=== PATIENT | male | born 1975 | race Two or more races ===

== ENCOUNTER 2017-07-29 20:23 | Emergency (ER) | payer BC ==
[~2017-07-29] VITALS: Ht 170.2 cm; Wt 70.3 kg
[2017-07-29 20:55] LABS: Basophils # (auto) 0.1 uL; Basophils % (auto) 1.2 % (0.0-2.0); Eosinophils # (auto) 0.2 uL; Eosinophils % (auto) 2.5 % (0.0-7.0); Hematocrit 44.4 % (41.0-53.0); Hemoglobin 14.9 g/dL (13.5-17.5); Lymphocytes # (auto) 2.7 uL; Lymphocytes % (auto) 28.3 % (10.0-50.0); Mean Corpuscular Hemoglobin 28.6 pg (28.0-32.0); Mean Corpuscular Hgb Conc. 33.4 g/dL (32.0-36.0); Mean Corpuscular Volume 85.4 fL (80.0-100.0); Mean Platelet Volume 7.5 fL (6.9-10.8); Monocytes # (auto) 0.7 uL; Neutrophils # (auto) 5.7 uL; Platelet Count (auto) 310 10^3/uL (140-450); Red Cell Distribution Width 14.1 % (11.8-14.3); White Blood Cell 9.4 10^3/uL (4.4-10.8)
[2017-07-29 21:01] LABS: Urine Bilirubin Negative (Negative); Urine Blood TRACE /uL (Negative); Urine Color Yellow (Yellow); Urine Glucose Normal (Normal); Urine Ketone Negative (Negative); Urine Nitrite Negative (Negative); Urine RBC 18 /hpf (0 - 3); Urine Urobilinogen Normal (Negative)
[2017-07-29 21:08] LABS: INR 0.98 (0.9-1.15); Partial Thromboplastin Time 28.2 sec (22.64-33.71); Prothrombin Time 10.7 sec (9.37-12.3)
[2017-07-29 21:19] LABS: Albumin 4.2 g/dL (3.4-5.0); Anion Gap 7 (5-15); Aspartate Aminotransferase 15 U/L (15-37); BUN/Creatinine Ratio 13.2; Blood Urea Nitrogen 12 mg/dL (7-18); Calcium 8.8 mg/dL (8.5-10.1); Carbon Dioxide 29 mmol/L (21-32); Chloride 106 mmol/L (98-107); GFR African American 118 mL/min; GFR Non-African American 97 mL/min; Glucose 96 mg/dL (74-106); Potassium 3.7 mmol/L (3.5-5.1); Salicylate 3.4 mg/dL (2.8-20.0); Sodium 142 mmol/L (136-145)
[2017-07-29 21:20] LABS: Acetaminophen < 2.0 ug/mL (10-30)
[2017-07-29 21:21] LABS: Alkaline Phosphatase 89 U/L (45-117); Total Protein 7.4 g/dL (6.4-8.2)
[2017-07-29 22:36] LABS: Magnesium 2.6 mg/dL (1.6-2.6)
[2017-07-30] MEDS ORDERED: SODIUM CHLORIDE 0.9% 1,000 ML IV ONE ×2 (07:55)
[2017-07-30] MEDS ORDERED: diphenhdrAMINE HCL 50 MG/1 ML VL IV ONE (08:00)
[2017-07-30] MEDS ORDERED: LORazepam 2MG/ML-1ML VIAL IV ONE ×2 (08:00→09:30)
[2017-07-30 10:27] VITALS: BP 145/63
== END 2017-07-30 10:30 | disposition home or self-care (01) ==
LOC: ER 20:28
DX: T50.905A Adverse effect of unspecified drugs, medicaments and biological substances, initial encounter (principal); F11.20 Opioid dependence, uncomplicated; Z59.0 Homelessness; X58.XXXA Exposure to other specified factors, initial encounter; Y93.89 Activity, other specified; Y99.8 Other external cause status; Y92.89 Other specified places as the place of occurrence of the external cause
CPT/HCPCS: 36415; 80053; 80307; 80320; 80329; 81001; 83735; 84484; 85025; 85610; 85730; 96361; 96374; 96375; 96376; 99285; J1200; J2060; J7030

== ENCOUNTER 2017-10-15 20:42 | Emergency (ER) | payer BC ==
[~2017-10-15] VITALS: Ht 170.2 cm; Wt 79.4 kg
[~2017-10-15 20:42] MED LIST: LORazepam 0.5 MG TAB ONE
[2017-10-15 20:49] VITALS: BP 139/68
[2017-10-15] MEDS ORDERED: LORazepam 0.5 MG TAB PO ONE (21:00)
== END 2017-10-16 00:30 | disposition left against medical advice (07) ==
LOC: ER 20:52
DX: T78.40XA Allergy, unspecified, initial encounter (principal)

== ENCOUNTER 2017-10-25 02:50 | Emergency (ER) | payer BC ==
[~2017-10-25] VITALS: Ht 170.2 cm; Wt 77.1 kg
[2017-10-25 04:14] LABS: Basophils # (auto) 0.1 uL; Basophils % (auto) 1.5 % (0.0-2.0); Eosinophils # (auto) 0.3 uL; Eosinophils % (auto) 4.2 % (0.0-7.0); Hematocrit 42.8 % (41.0-53.0); Hemoglobin 14.3 g/dL (13.5-17.5); Lymphocytes # (auto) 2.8 uL; Lymphocytes % (auto) 41.5 % (10.0-50.0); Mean Corpuscular Hemoglobin 28.7 pg (28.0-32.0); Mean Corpuscular Hgb Conc. 33.4 g/dL (32.0-36.0); Mean Corpuscular Volume 86.1 fL (80.0-100.0); Monocytes # (auto) 0.5 uL; Monocytes % (auto) 7.7 % (0.0-12.0); Neutrophils % (auto) 45.1 % (37.0-80.0); Nucleated Red Blood Cells % 0.2 %; Platelet Count (auto) 244 10^3/uL (140-450); Red Blood Cells 4.98 10^6/uL (4.5-5.90); Red Cell Distribution Width 13.5 % (11.8-14.3); White Blood Cell 6.7 10^3/uL (4.4-10.8)
[2017-10-25 04:30] LABS: Albumin 3.8 g/dL (3.4-5.0); BUN/Creatinine Ratio 24.4; Calcium 8.6 mg/dL (8.5-10.1); Potassium 3.8 mmol/L (3.5-5.1)
[2017-10-25 04:36] LABS: Urine WBC None Seen /hpf (0 - 3)
[2017-10-25 04:40] LABS: Bilirubin, Total 0.2 mg/dL (0.2-1.0); Total Protein 6.9 g/dL (6.4-8.2)
[2017-10-25 04:58] LABS: Urine Bacteria NONE SEEN /hpf (None Seen); Urine Blood Negative /uL (Negative); Urine Specific Gravity 1.006 (1.001-1.035)
[2017-10-25 05:38] LABS: Alcohol, Urine < 3.0 mg/dL (0-5); Amphetamine Screen, Urine NEGATIVE (NEGATIVE); Barbiturate Scree,Urine NEGATIVE (NEGATIVE); Benzodiazephine Screen, Urine POSITIVE (NEGATIVE); Cannabinoid Screen, Urine NEGATIVE (NEGATIVE); Cocaine Screen, Urine NEGATIVE (NEGATIVE); Opiate Scree,Urine NEGATIVE (NEGATIVE); Phencyclidine Screen, Urine NEGATIVE (NEGATIVE)
[2017-10-25 05:47] VITALS: BP 131/84
== END 2017-10-25 06:03 | disposition home or self-care (01) ==
LOC: ER 03:02
DX: G47.00 Insomnia, unspecified (principal)
CPT/HCPCS: 36415; 80053; 80307; 81001; 85025

== ENCOUNTER 2022-07-20 01:46 | Emergency (ER) | payer BC ==
[~2022-07-20] VITALS: Ht 170.2 cm; Wt 72.0 kg
[2022-07-20] MEDS ORDERED: KETOROLAC TROMETH 60MG/2ML VIAL IM ONE (02:15)
[2022-07-20 04:25] VITALS: BP 140/82
== END 2022-07-20 06:39 | disposition home or self-care (01) ==
LOC: ER 01:46
DX: S63.105A Unspecified dislocation of left thumb, initial encounter (principal); W01.0XXA Fall on same level from slipping, tripping and stumbling without subsequent striking against object, initial encounter; Y93.89 Activity, other specified; Y92.89 Other specified places as the place of occurrence of the external cause; Y99.8 Other external cause status
CPT/HCPCS: 26770; 73130; 96372; 99284; J1885

== ENCOUNTER 2024-01-10 13:39 | Emergency (ER) | payer BC, MEDICAID ==
[~2024-01-10] VITALS: Ht 172.7 cm; Wt 76.0 kg
[2024-01-10 14:02] VITALS: BP 154/100; PULSE 86; RESP 16; O2SAT 97
== END 2024-01-10 15:45 | disposition left against medical advice (07) ==
LOC: ER 13:39
DX: M54.6 Pain in thoracic spine (principal); Z53.21 Procedure and treatment not carried out due to patient leaving prior to being seen by health care provider

== ENCOUNTER 2024-08-05 13:50 | Emergency (ER) | payer MEDICAID ==
[~2024-08-05] VITALS: Ht 172.7 cm; Wt 72.7 kg
[2024-08-05] MEDS ORDERED: SODIUM CHLORIDE 0.9% 1,000 ML IV ONE (14:00)
[2024-08-05] MEDS ORDERED: levoFLOXacin 500MG 100 ML IV ONE (14:00)
[2024-08-05 14:30] VITALS: BP 164/109; PULSE 114; RESP 17; O2SAT 100
[2024-08-05 14:34] LABS: Basophils # (auto) 0.1 10 ^3/uL (0-0.2); Basophils % (auto) 1.4 % (0.0-2.0); Eosinophils # (auto) 0.1 10 ^3/uL (0-0.8); Eosinophils % (auto) 0.8 % (0.0-7.0); Hematocrit 45.5 % (41.0-53.0); Hemoglobin 15.1 g/dL (13.5-17.5); Lymphocytes # (auto) 1.2 10 ^3/uL (0.4-5.4); Lymphocytes % (auto) 15.8 % (10.0-50.0); Mean Corpuscular Hemoglobin 28.2 pg (28.0-32.0); Mean Corpuscular Hgb Conc. 33.2 g/dL (32.0-36.0); Mean Corpuscular Volume 85.1 fL (80.0-100.0); Monocytes # (auto) 0.5 10 ^3/uL (0-1.3); Monocytes % (auto) 6.5 % (0.0-12.0); Neutrophils # (auto) 5.9 10 ^3/uL (1.6-8.6); Neutrophils % (auto) 75.5 % (37.0-80.0); Platelet Count (auto) 251 10^3/uL (140-450); Red Blood Cells 5.35 10^6/uL (4.5-5.90); Red Cell Distribution Width 13.8 % (11.8-14.3); White Blood Cell 7.8 10^3/uL (4.4-10.8)
[2024-08-05 14:52] LABS: Alanine Aminotransferase 24 U/L (7-40); Albumin 4.9 g/dL (3.2-4.8); Alkaline Phosphatase 105 U/L (46-116); Anion Gap 6 (5-15); Aspartate Aminotransferase 16 U/L (13-40); BUN/Creatinine Ratio 17.9 (10.0-20.0); Blood Urea Nitrogen 15 mg/dL (9-23); Calcium 9.7 mg/dL (8.7-10.4); Carbon Dioxide 28 mmol/L (20-31); Chloride 108 mmol/L (98-107); Glucose 113 mg/dL (74-106); Potassium 4.1 mmol/L (3.5-5.1); Sodium 142 mmol/L (136-145)
[2024-08-05 14:53] LABS: Bilirubin, Total 0.7 mg/dL (0.2-1.0); Total Protein 6.9 g/dL (5.7-8.2)
== END 2024-08-05 14:47 | disposition left against medical advice (07) ==
LOC: EDBD 13:50 → ER 13:50
DX: C34.90 Malignant neoplasm of unspecified part of unspecified bronchus or lung (principal); Z79.899 Other long term (current) drug therapy
CPT/HCPCS: 36415; 80053; 82962; 85025; 93005

== ENCOUNTER 2025-09-06 03:11 | Emergency (ER) | payer MEDICAID, OTHER ==
[~2025-09-06] VITALS: Ht 157.5 cm; Wt 69.9 kg
[2025-09-06 03:14] VITALS: BP 147/72; PULSE 75; RESP 16; TEMP 97.5; O2SAT 98
== END 2025-09-06 05:59 | disposition left against medical advice (07) ==
LOC: ER 03:11
DX: S50.872A Other superficial bite of left forearm, initial encounter (principal); Z53.21 Procedure and treatment not carried out due to patient leaving prior to being seen by health care provider; W57.XXXA Bitten or stung by nonvenomous insect and other nonvenomous arthropods, initial encounter; Y93.89 Activity, other specified; Y92.89 Other specified places as the place of occurrence of the external cause; Y99.8 Other external cause status